=== PATIENT | male | born 1960 | race Caucasian/White ===

== ENCOUNTER 2017-06-14 10:43 | Emergency (ER) | payer OTHER ==
[2017-06-14 11:00] VITALS: BP 146/86
[2017-06-14] MEDS ORDERED: Bacitracin/Neomycin/Polymyxin B Oint 0.9 GM U/D Packet TOP ONE (11:17)
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
== END 2017-06-14 11:55 | disposition home or self-care (01) ==
LOC: LL.ED 10:43
DX: S01.112A Laceration without foreign body of left eyelid and periocular area, initial encounter (principal); Z79.899 Other long term (current) drug therapy; W22.8XXA Striking against or struck by other objects, initial encounter
CPT/HCPCS: 12011; 99283